=== PATIENT | female | born 1945 | race Caucasian/White ===

== ENCOUNTER → 2017-11-02 | Outpatient (CLI) | payer OTHER | LOC: M.RAD 16:11 | DX: M25.552 Pain in left hip (principal); R10.2 Pelvic and perineal pain ==

== ENCOUNTER → 2019-06-10 | Outpatient (CLI) | payer OTHER, MEDICARE | LOC: M.RAD 08:20 | DX: Z12.31 Encounter for screening mammogram for malignant neoplasm of breast (principal) ==

== ENCOUNTER → 2021-03-16 | Outpatient (CLI) | payer OTHER, MEDICARE | LOC: M.RAD 14:26 | PROVIDERS: ATTEND Internal Medicine | DX: Z12.31 Encounter for screening mammogram for malignant neoplasm of breast (principal) ==